=== PATIENT | female | born 1995 | race African-American/Black ===

== ENCOUNTER 2017-02-10 04:31 | Emergency (ER) | payer SELFPAY ==
[2017-02-10 03:59] LABS: URINE SOURCE CLEAN CATCH
[2017-02-10 04:06] LABS: URINE APPEARANCE CLEAR; URINE BILIRUBIN NEG (NEG); URINE BLOOD 2+ (NEG); URINE COLOR YELLOW; URINE GLUCOSE NEG (NEG); URINE KETONE NEG (NEG); URINE LEUKOCYTE ESTERASE 1+ (NEG); URINE NITRATE NEG (NEG); URINE PH 6.5 (5-8); URINE PROTEIN NEG (NEG); URINE SPECIFIC GRAVITY 1.041 (1.003-1.035)
[2017-02-10 04:09] LABS: CULTURE INDICATED? YES; URINE BACTERIA AUWI 1+ (NEGATIVE); URINE SQUAMOUS EPITHELIAL CELL FEW /[HPF]
== END 2017-02-10 04:40 | disposition home or self-care (01) ==
LOC: CED 04:31
PROVIDERS: Emergency Medicine
DX: N39.0 Urinary tract infection, site not specified (principal)
CPT/HCPCS: 81003; 84703; 87086; 99282

== ENCOUNTER 2017-05-20 21:47 | Emergency (ER) | payer SELFPAY | END 2017-05-20 22:55 | disposition home or self-care (01) | LOC: CED 21:47 → CFTX 21:47 | DX: J02.9 Acute pharyngitis, unspecified (principal) | CPT/HCPCS: 87651; 99283 ==